=== PATIENT | male | born 1955 | race Caucasian/White ===

== ENCOUNTER 2016-05-08 17:54 | Emergency (ER) | payer MEDICARE ==
[~2016-05-08 17:54] MED LIST: ADVAIR DIS1 PUFF/DO1 IH; ALLEGRA DPS180 MG PO; COUMADIN1 MG PO; DELTASONE DPS20 MG PO; ENULOSE10 GM/15 M PO; FOLVITE-DPS1 MG PO; INDERAL-DPS10 MG PO; KEFLEX-DPS500 MG PO; KLOR-CON M2020 ME1 PO; LACTULOSE20 GM/30 M PO; LEVAQUIN DPS500 MG PO; LOVENOX DP40 MG/0.4 SQ; MAG-OX400 MG PO; OXY IR DPS5 MG PO; POTASSIUM CHLO20 ME1 PO; PROTONIX40 MG PO; SURFAK DPS240 MG PO; THERA1 EACH PO; VIBRAMYCIN-DPS100 M2 PO; VITAMIN B1100 MG PO
--- NOTE | 2016-05-19 20:26 | ER ---
ADMIT: 05/08/2016 RM/LOC: ER [facility] MR#: [id number] [address] [address] MIRLANDE ALBRIGHT [address] [place] [address] Emergency Room Report SEX: M AGE: 60 : 1955 DATE: 05/08/2016 ADDENDUM: CHIEF COMPLAINT: Right leg pain. HISTORY OF PRESENT ILLNESS: This is a 60-year-old male, who was stepping off to a pond that was just about down a foot down. He said it hurt when he stepped down. I did an x-ray of his right lower leg, it is negative for any fracture read by Dr. Santana. CLINICAL IMPRESSION: Contusion in the right lower leg. I did give him 400 mg ibuprofen in the ER and discharged home. CARLOS Soares / Donnell Santana MD / alexandro JOB #: [id number] CC: Bassam Laguna MD, Attending Physician Bassam Posey MD, Family Physician
[2016-08-25] MEDS ORDERED: PERIDEX DPS473 ML PO (16:06)
[2016-08-25] MEDS ORDERED: LASIX DPS20 MG PO (16:06)
[2016-08-25] MEDS ORDERED: KLOR-CON M2020 ME1 PO (16:06)
[2016-08-25] MEDS ORDERED: CELEXA DPS20 MG PO (16:06)
[2016-08-25] MEDS ORDERED: CIPRO750 MG PO (16:07)
[2016-08-25] MEDS ORDERED: ZANAFLEX2 MG PO (16:07)
[2016-08-25] MEDS ORDERED: CARAFATE DPS1 GM PO (16:08)
[2016-10-29] MEDS ORDERED: CARAFATE DPS1 GM PO (14:59)
[2016-10-29] MEDS ORDERED: CELEXA DPS20 MG PO (15:00)
[2016-10-29] MEDS ORDERED: LACTULOSE20 GM/30 M PO (15:00)
[2016-10-29] MEDS ORDERED: KLOR-CON M2020 ME1 PO (15:00)
[2016-10-29] MEDS ORDERED: VITAMIN B1100 MG PO (15:00)
[2016-10-29] MEDS ORDERED: FOLVITE-DPS1 MG PO (15:00)
[2016-10-29] MEDS ORDERED: SPORTS CREAM85 GM TP (15:01)
[2016-10-29] MEDS ORDERED: NORMAL SALINE FL5 ML IV (15:01)
[2016-10-29] MEDS ORDERED: XIFAXAN550 MG PO (15:01)
[2016-10-29] MEDS ORDERED: PROTONIX IV40 MG IV (15:02)
[2016-10-29] MEDS ORDERED: VANCOCIN-DPS1 GM IV (15:03)
[2016-10-29] MEDS ORDERED: ZOSYN 3.3753.375 GM IV (15:03)
[2016-10-29] MEDS ORDERED: MILK OF MAGNESI10 ML PO (15:04)
[2016-10-29] MEDS ORDERED: MIRALAX PACKET17 GM PO (15:04)
[2016-10-29] MEDS ORDERED: DULCOLAX-DPS10 MG PR (15:04)
[2016-10-29] MEDS ORDERED: DESYREL-DPS50 MG PO (15:04)
[2016-10-29] MEDS ORDERED: ZOFRAN4 MG PO (15:04)
[2016-10-29] MEDS ORDERED: NITROSTAT0.4 MG SL (15:05)
[2016-10-29] MEDS ORDERED: MORPHINE2 MG/ML IV (15:05)
[2016-10-29] MEDS ORDERED: NORMAL SALINE1000 ML IV (15:06)
== END 2016-05-08 19:30 | disposition home or self-care (01) ==
LOC: ER 17:54
DX: S80.11XA Contusion of right lower leg, initial encounter (principal); W22.8XXA Striking against or struck by other objects, initial encounter

== ENCOUNTER 2016-05-19 17:29 | Emergency (ER) | payer MEDICARE ==
--- NOTE | ~2016-05-19 | CO ---
ADMIT: 05/19/2016 RM/LOC: [facility] MR#: [id number] [address] [address] MIRLANDE ALBRIGHT [address] [place] [address] Consultation SEX: M AGE: 60 : 1955 DATE OF CONSULTATION: 05/19/2016 ATTENDING PHYSICIAN: Grover Sanchez CONSULTING PHYSICIAN: Bassam Posey MD ADDENDUM: This is an addendum to consultation. The patient was initially planned for transfer to [facility] in [place], was questioning whether not the patient should indeed be transferred #1, then presented concerns of why the patient was not being transferred to [place] as he had been banded in the past. I spoke with the patient as he has also been banded in [place] and he does confirm that it was actually at [facility] and not at [facility]. I spoke to Wade Mar, the EMTALA bsa/aml compliance officer on recommendations of how to proceed at this point. He does educated me that technically based on EMTALA Guidelines that the patient must transfer to the closest facility with the available services which would indeed be [place]. Therefore at that time, when asked on further recommendations that he would recommend that we do indeed do attempt transfer to [place] first and therefore, I do proceed with that. I do speak with Dr. Everett, I do update him of the patient's history as well as history of esophageal varices. History of TIPS. Dr. Everett does then tell me at that time, that they do have limited abilities to band esophageal varices, however, not gastric varices. I do discuss the history of the patient with him as well as my discussions with EMTALA compliance as well as with recommendations for attempted transfer to [place] as it is the closest available facility with available services. Therefore, Dr. Everett does accept this patient with making sure that I understand with this stated limitations; however, the patient cannot be treated there, they will transfer him on to a different facility as they do not have a radiologist; however, he does accept the patient. At that time, he does request that I speak to the hospitalist services. I do speak to hospital service. I do discuss the patient's history as well as history of right upper extremity DVT approximately 6 months ago as well as no gross hematochezia, no melena, no hemoptysis but with substantial diarrhea and epigastric pain as well as limitations here at [facility] as our general surgeons who do all of our endoscopy and if in the event this patient does have esophageal variceal bleeding which he has had in the past, we cannot intervene as we do not have the capabilities. He requests that we do give him some IV Protonix, packed red blood cells as well as push all of the imaging to packs services. I do update him on the interventions at this point that we have given 80 mg of IV Protonix now. We have also given ordered 1 unit of packed red blood cells to be given as well as he did get 1 mg of subcu vitamin K in the ER. I will go ahead and start him on his drip at 8 mg/hour of the Protonix as well as at his request, I give him 1 g of IV ceftriaxone which we will also order this as well. The patient is accepted to [place]. The nurse in the ER will notify [facility] that we are indeed transferring to [facility] as it is the closest facility with the available services and based on EMTALA guidelines, we will proceed with ADMIT: 05/19/2016 RM/LOC: ER [facility] MR#: [id number] [address] [place] [id number] JOSE RAMON, MIRLANDE Veronique [address] [place] [address] Consultation SEX: M AGE: 60 : 1955 [address] I do speak with Wade Mar as well and for further recommendations if there is any further images or any further steps need to be taken to maintain at all compliance and just request that clearly document exactly why the patient was diverted from [place] to [place]. The patient does have what appears to be acute blood loss anemia, approximately 5.5 g. He does have some epigastric pain as well as some diarrhea. I did have CTA with negative for PE. Concern is that he does have a gastrointestinal bleeding, source is not identified at this time, gastritis versus esophageal varices. With his esophageal varices, for the patient's safety and the patient does agree with transfer as well, we will transfer him to a facility that has Gastroenterology services that can meet his needs for gastrointestinal or for esophageal variceal banding if that is indeed the acute medial etiology of his symptoms as well as to the point where they could actually complete his diagnostic procedures and intervene upon them if warranted. Bassam Posey MD/ alexandro JOB #: [id number] CC: Grover Sanchez, Attending Physician Bassam Posey, Family Physician
--- NOTE | 2016-05-20 17:56 | CO ---
ADMIT: 05/19/2016 RM/LOC: [facility] MR#: [id number] [address] [address] CASEY ALBRIGHT [address] [place] [address] Consultation SEX: M AGE: 60 : 1955 DATE OF CONSULTATION: 05/19/2016 ATTENDING PHYSICIAN: Grover Sanchez MD CONSULTING PHYSICIAN: Bassam Posey MD REASON FOR CONSULTATION: Evaluation for hypotension,tachycardia, syncope, and anemia. HISTORY OF PRESENT ILLNESS: Casey Albright is a very nice 60-year-old man, who is previously known to my service. Casey does have a rather complicated history. He has cirrhosis secondary to chronic alcohol use, most recently has some difficulty with incarceration secondary to some conflicts with some roommates. Last was admitted to [facility] in August of 2015. He did have severe sepsis at that time and he did have extensive clot burden is right upper extremity precipitated by a PICC line. He actually resolved nicely from his sepsis and was discharged to home. Ray was subsequently largely lost to followup after this as he did spend some time in care home. He has not been on continuous anticoagulation. He reports he did not take it at all while he was in the care home and when discharged, he was on 3 mg of Coumadin 1 day a week. The patient ultimately followed up in my clinic secondary to need for cataract surgery. He was actually taken off his Coumadin at that time. He did have an uneventful cataract surgery and was doing well and was reinstituted on his Coumadin. He has not had any contiguous anticoagulation for these last 6-9 months. He was actually doing quite well until tonight when reportedly he had syncopal episode and sudden onset of chest pain. He was evaluated by the ambulance services and was noted to have a systolic pressure of 102. He had severe chest pain. They gave him nitroglycerin. Upon arrival to the ER, his blood pressures were 67/palp with severe hypotension, severe tachycardia. He did receive goal-directed therapy under the care of Dr. Sanchez with IV fluids. He did receive evaluation as well for potential pulmonary embolism. He did undergo a CT angiogram of his chest, which on report to the ER was negative for any acute PE's and was actually diagnosed with severe anemia with a hemoglobin of 7.2. He does not report any samanta hematemesis. No hematochezia. No melena. However, he has had substantial epigastric pain. The patient does say that he is no longer drinking alcohol. However, he has been relapsing periodically. Unclear if he has actually been drinking at this time because we do not have any blood alcohol level. Anyway, regardless, he states he has been in his normal state of health and just suddenly he had a sudden episode of syncope after a large loose BM and called the ambulance and that resulted in his evaluation in the ER. He does feel much better after a fluid resuscitation and he does feel much less short of breath with 2 L per nasal cannula. He does confirm that he has known esophageal varices. He had been banded twice, I believe, at [facility] in [place] as well as one time in [facility] in [place]. Most recently, he was banded in [place]. Otherwise, he states that he has not been taking his Protonix, pretty much any of his pills, but did get back on everything approximately 1 week ago when he stopped in to my office to speak to the nurse. ADMIT: 05/19/2016 RM/LOC: ER [facility] MR#: [id number] [address] [place] [phone] CASEY ALBRIGHT [address] [place] [id number] Consultation SEX: M AGE: 60 : 1955 Otherwise, he does feel relatively okay at this point. PAST MEDICAL HISTORY: 1. Chronic alcohol abuse. 2. Cirrhosis secondary to chronic alcoholism. 3. Known esophageal varices. 4. History of TIPS. 5. History of variceal banding x2. 6. Ascites in the past. However, this has largely improved with his TIPS. 7. Hypertension. 8. Tobacco abuse. 9. Major depression. 10.Malnutrition. 11.Medical nonadherence. 12.History of right extremity DVT. 13.Sporadic anticoagulation. MEDICATIONS: 1. Protonix 40 mg daily. 2. Propranolol 10 mg three times daily. 3. Potassium chloride 20 mEq daily. 4. Advair 250/50 two puffs twice daily. 5. Coumadin. However, he has been very nonadherent to these and states that he just got back on everything approximately a week ago. ALLERGIES: NO KNOWN MEDICAL ALLERGIES. FAMILY HISTORY: He does not really remember a lot about his family history. He does not remember anyone have any bleeding disorders or anything of that nature. However, there is a family history of some substance abuse. SOCIAL HISTORY: He smokes tobacco. He does drink alcohol. He states that he has not drank for several months. Unclear if this is accurate or not because he does forget drinks and forgets a lot. He. does have some cognitive changes secondary to his chronic alcoholism as well. He does not do drugs. He lives with a lady friend and she is very supportive. He does have a sister, who is his POA, is very supportive as well. REVIEW OF SYSTEMS: Complete review of systems reviewed as per HPI. PHYSICAL EXAMINATION: VITAL SIGNS: Blood pressure has stabilized, 120/50, pulse is 120, respiratory rate is 20. He is 2 L on nasal cannula. GENERAL: He is alert and oriented x3. He actually feels quite well right now. HEENT: Normocephalic, atraumatic. He has some abrasions on some of his ADMIT: 05/19/2016 RM/LOC: [facility] MR#: [id number] [address] [address] CASEY ALBRIGHT [address] [place] [address] Consultation SEX: M AGE: 60 : 1955 elbows and skin. NECK: Supple. HEART: Tachycardic. LUNGS: Distant with prolonged expiratory phase. ABDOMEN: Soft. It is nondistended. It is tender to palpation in the epigastric region. EXTREMITIES: No clubbing. No cyanosis. ABDOMEN: Of note, on his abdomen, he does have a bit of a ventral hernia as well. LABORATORY DATA: Hemoglobin was 7.2, one month ago at my clinic was 12.7. White blood cells are 1.5, platelets 141, sodium 140, potassium is 2.6, chloride 107, bicarb is 15, glucose is 134, BUN is 12, creatinine is 1.2, glucose is 7.3, magnesium is 1.8, troponin 0.015, INR is 1.83. Hemoccult is actually negative. EKG with tachycardia. ASSESSMENT AND PLAN: 1. Anemia. The patient has a substantial reduction in his hemoglobin in approximately 1 months' time. Dropping approximately 5.5 grams. He does not report any samanta bleeding in his stools. He has no back pain, but he does have some pretty severe epigastric pain. 2. Shock. He clearly I think with systolic pressures of 100 with EMS and 60s/palp reportedly in the ER. The patient clearly does have a degree of shock which has responded very nicely to fluids. 3. Hypokalemia. 4. Chest pain. 5. Sinus tachycardia. 6. History of esophageal varices. 7. Chronic liver disease. 8. History of right upper extremity DVT which was provoked. 9. Sporadic anticoagulation. He has not been on any actually contiguous anticoagulation at all with this to complete even 3 months total. To summarize, Casey Albright is a very nice 60-year-old man, who unfortunately does have a long struggle with chronic alcoholism, recently spent some time in care home. He has been really working hard to get things going in the right direction for himself. He does have a place where he lives. He has a very supportive live-in lady roommate, very supportive family. He recently had his cataracts done and was doing quite well. He re-established in clinic and trying to make sure he follows up to maintain on his medications. He was in his normal state of health; however, did have acute onset of chest pain and a syncopal episode with BM. He was noted to have a systolic pressure of 102 by EMS and was given some sublingual nitroglycerin, this upon arrival with his pressures were like 67 reportedly over palp. Had heart rate in the 130s, and ultimately did have imaging with no PE, no pneumonia, and noted to have just very substantial reduction of his hemoglobin approximately 5.5 g. I did speak ADMIT: 05/19/2016 RM/LOC: ER [facility] MR#: [id number] [facility] [place] [id number] CASEY ALBRIGHT [address] [place] [address] Consultation SEX: M AGE: 60 : 1955 with our General surgery Services, who would be our consultative services for gastrointestinal bleeding as I am concerned with his previous history of esophageal varices and esophageal bleeding that he may indeed have esophageal bleeding vs gastritis. The General Surgery Services do not have the capability to band esophageal varices if this is indeed the source of his bleeding they recommend transfer. With our inability to provide appropriate potentially needed services at this time, I do recommend that it would be prudent to transfer this patient to a higher level institution that actually has Gastroenterology Services who can meet a potential need if he does indeed have an esophageal varices bleeding. This very well could be gastritis. However, with his history, I think for patient safety, I think it is prudent to transfer him to a higher level institution where he will have the appropriate potential interventions if he does indicate need them. I do speak to the ER doctor about these recommendations, go ahead and give him 80 mg of IV Protonix, as well as I will go ahead and order type and cross, 1 unit of packed red blood cells, and I am going to order 40 mEq of IV potassium. The ER physician does speak to [facility] in [place]. They do have reportedly Gastroenterology Services. They do give checkout to the hospitalist services. There is some concern about whether or not he is acutely bleeding or not. I do speak personally to the hospitalist services. I do review his history of esophageal varices, noted to be banded twice x2. It is once in [place] and most recently in [place]. The hospitalist service does not note that he had been banded at their institution so there likely does appear to be [facility] to which he was transferred in the past. Regardless, I have a samanta discussion with Dr. Weaver that Mr. Albright does have a known history of esophageal varices with bleeding and banding of these esophageal varices. He does have a 5.5 g hemoglobin loss just in 1 month. He does not have any positive Hemoccult at this time. He does not report any bleeding; however, does have severe epigastric pain. This very well may be gastritis. However, if this is not the case and that this is actually bleeding esophageal varices, we have no capability to intervene upon this with our General Surgery Services who do our endoscopies, who cannot proceed with appropriate endoscopy on this jose juan ADMIT: 05/19/2016 RM/LOC: ER [facility] MR#: [id number] [address] [place] [id number] CASEY ALBRIGHT [address] [place] [address] Consultation SEX: M AGE: 60 : 1955 secondary to esophageal varices as they lack the ability to do the intervention if needed. I do discuss with him heart rates 130s upon arrival as well as hypotension upon arrival as well as I feel that this is prudent to transfer this patient for patient's safety in the event that he does require the services if this is indeed bleeding esophageal varices. At that time, Mr. Micky Weaver does agree to accept the patient in transfer and he had no further questions. I did speak to the ER physician of my recommendations for Protonix, type and cross his packed red blood cells as well as give some IV potassium. I discussed this plan with the patient, who expressed understanding, was in agreement, and had no further questions. Bassam Posey MD/ alexandro JOB #: [id number] CC: Grover Sanchez MD, Attending Physician Bassam Posey MD, Family Physician
--- NOTE | 2016-05-20 18:07 | CO ---
ADMIT: 05/19/2016 RM/LOC: ER [facility] MR#: [id number] [address] [address] MIRLANDE ALBRIGHT [address] [place] [address] Consultation SEX: M AGE: 60 : 1955 DATE OF CONSULTATION: 05/19/2016 ATTENDING PHYSICIAN: Grover Sanchez CONSULTING PHYSICIAN: Bassam Posey MD ADDENDUM: I did receive another call from Dr. Romero in [place] with Hospitalist Services, request that the patient be initiated on octreotide drip 50 mcg x1, followed by 50 mcg an hour. We will request these to be started in the ER prior to his transfer to [place]. Bassam Posey MD/ alexandro JOB #: [id number] CC: Grover Sanchez, Attending Physician Bassam Posey, Family Physician
--- NOTE | 2016-05-20 19:07 | ER ---
ADMIT: 05/19/2016 RM/LOC: ER [facility] MR#: [id number] [address] [address] MIRLANDE ALBRIGHT [address] [place] [address] Emergency Room Report SEX: M AGE: 60 : 1955 DATE: 05/19/2016 ADDENDUM: Please refer to Dr. Sanchez's dictation as the main dictation. The patient is a 60-year-old male with a past medical history of alcoholic cirrhosis; esophageal viruses, status post band ligation; and TIPS; who came to the ER with chief complaint of syncope. The patient received nitroglycerin sublingual in the ambulance and by the time he got here, his systolic blood pressure was 60s, allegedly, previous systolic per nursing was 110. In the ER, D-dimer was elevated, questionable if it is because of the PE versus other causes like cirrhosis. CT angio of the chest was done, which was negative for PE. The patient's hemoglobin was dropped from 11-7 since last month, but the patient denied any obvious bleeding or any dark stools. The patient had mild epigastric pain. Hemoccult was negative and BUN was not elevated. With the possibility of GI bleed versus other causes, after discussion of the case with Medicine, Dr. Posey, he advised that the patient should be transferred as if the esophageal varices and bleeding occurs here, we do not have the GI and proper specialist to followed up and it could be life threatening. I agreed with the plan. The patient received IV fluid and was started transfusion 1 units of PRBC in the ER. The patient received vitamin K too. Blood pressure systolic raised to 120s. The patient was still tachycardic and 120 per minute. We contacted [facility], after talking to Dr. Micky Weaver, hospitalist, he admitted the patient for further followups and treatments. Benjamin Elias MD/ alexandro JOB #: [id number] CC: Grover Sanchez MD, Attending Physician UNKNOWN, Family Physician
[2016-08-25] MEDS ORDERED: LASIX DPS20 MG PO (16:06)
[2016-08-25] MEDS ORDERED: KLOR-CON M2020 ME1 PO (16:06)
[2016-08-25] MEDS ORDERED: CELEXA DPS20 MG PO (16:06)
[2016-08-25] MEDS ORDERED: PERIDEX DPS473 ML PO (16:06)
[2016-08-25] MEDS ORDERED: CIPRO750 MG PO (16:07)
[2016-08-25] MEDS ORDERED: ZANAFLEX2 MG PO (16:07)
[2016-08-25] MEDS ORDERED: CARAFATE DPS1 GM PO (16:08)
[2016-10-29] MEDS ORDERED: CARAFATE DPS1 GM PO (14:59)
[2016-10-29] MEDS ORDERED: VITAMIN B1100 MG PO (15:00)
[2016-10-29] MEDS ORDERED: FOLVITE-DPS1 MG PO (15:00)
[2016-10-29] MEDS ORDERED: CELEXA DPS20 MG PO (15:00)
[2016-10-29] MEDS ORDERED: LACTULOSE20 GM/30 M PO (15:00)
[2016-10-29] MEDS ORDERED: KLOR-CON M2020 ME1 PO (15:00)
[2016-10-29] MEDS ORDERED: XIFAXAN550 MG PO (15:01)
[2016-10-29] MEDS ORDERED: SPORTS CREAM85 GM TP (15:01)
[2016-10-29] MEDS ORDERED: NORMAL SALINE FL5 ML IV (15:01)
[2016-10-29] MEDS ORDERED: PROTONIX IV40 MG IV (15:02)
[2016-10-29] MEDS ORDERED: ZOSYN 3.3753.375 GM IV (15:03)
[2016-10-29] MEDS ORDERED: VANCOCIN-DPS1 GM IV (15:03)
[2016-10-29] MEDS ORDERED: DULCOLAX-DPS10 MG PR (15:04)
[2016-10-29] MEDS ORDERED: ZOFRAN4 MG PO (15:04)
[2016-10-29] MEDS ORDERED: DESYREL-DPS50 MG PO (15:04)
[2016-10-29] MEDS ORDERED: MILK OF MAGNESI10 ML PO (15:04)
[2016-10-29] MEDS ORDERED: MIRALAX PACKET17 GM PO (15:04)
[2016-10-29] MEDS ORDERED: NITROSTAT0.4 MG SL (15:05)
[2016-10-29] MEDS ORDERED: MORPHINE2 MG/ML IV (15:05)
[2016-10-29] MEDS ORDERED: NORMAL SALINE1000 ML IV (15:06)
== END 2016-05-19 22:35 | disposition short-term general hospital (02) ==
LOC: ER 17:29
DX: E87.6 Hypokalemia (principal); R00.0 Tachycardia, unspecified; D64.9 Anemia, unspecified; I10 Essential (primary) hypertension; Z79.01 Long term (current) use of anticoagulants; Z79.899 Other long term (current) drug therapy

== ENCOUNTER 2016-06-25 22:57 | Emergency (ER) | payer MEDICARE ==
--- NOTE | 2016-07-04 19:05 | ER ---
ADMIT: 06/25/2016 RM/LOC: ER [facility] MR#: [id number] [address] [address] MIRLANDE ALBRIGHT [address] [place] [address] Emergency Room Report SEX: M AGE: 60 : 1955 DATE: 06/25/2016 The patient was signed out to me, please refer to the main dictation for further information. The patient is a 60-year-old male with a past medical history of chronic alcohol disorder, abuse, and alcoholic cirrhotic liver disease; esophageal varices, came to the ER with chief complaint of sharp, intermittent abdominal pain which is sometimes crampy and sometimes is in the right lower quadrant and the other times is in the epigastric area. The patient states while he was in the ER, he had few cramps which resolved spontaneously, each of them lasted few seconds to 1 or 2 minutes. The patient states that severity of pain was moderate and for a few seconds, it becomes severe. The patient states for the last year, he had similar episodes for the whole year. The patient has been followed up by his physician closely. The patient denies any hematochezia, melena, or hematemesis. PHYSICAL EXAMINATION: On physical examination when I got into the room, the patient was sleeping in no pain or distress, vital signs were stable, the patient was not tachycardic. When I got to the patient, as soon as I woke up the patient, he stated he has some pain in the epigastric area, but the abdomen had no tenderness or rebound or guarding. The patient was given some Protonix. The patient was given IV fluids. The lab works were noncontributory. In the ER, the patient had 2 episodes of right nasal bleed, which was cauterized with silver nitrate successfully. The patient was observed and did not develop any new symptoms, abdominal pain was controlled, and the patient was stable. The rest of the physical examination and lab works were noncontributory. The patient was discharged, cleared to shelter, to be followed up by the shelter physician and primary care doctor as needed. Benjamin Elias MD/ alexandro JOB #: [id number] CC: Benjamin Elias MD, Attending Physician [facility], Family Physician
[2016-08-25] MEDS ORDERED: PERIDEX DPS473 ML PO (16:06)
[2016-08-25] MEDS ORDERED: LASIX DPS20 MG PO (16:06)
[2016-08-25] MEDS ORDERED: CELEXA DPS20 MG PO (16:06)
[2016-08-25] MEDS ORDERED: KLOR-CON M2020 ME1 PO (16:06)
[2016-08-25] MEDS ORDERED: CIPRO750 MG PO (16:07)
[2016-08-25] MEDS ORDERED: ZANAFLEX2 MG PO (16:07)
[2016-08-25] MEDS ORDERED: CARAFATE DPS1 GM PO (16:08)
[2016-10-29] MEDS ORDERED: CARAFATE DPS1 GM PO (14:59)
[2016-10-29] MEDS ORDERED: LACTULOSE20 GM/30 M PO (15:00)
[2016-10-29] MEDS ORDERED: VITAMIN B1100 MG PO (15:00)
[2016-10-29] MEDS ORDERED: KLOR-CON M2020 ME1 PO (15:00)
[2016-10-29] MEDS ORDERED: CELEXA DPS20 MG PO (15:00)
[2016-10-29] MEDS ORDERED: FOLVITE-DPS1 MG PO (15:00)
[2016-10-29] MEDS ORDERED: SPORTS CREAM85 GM TP (15:01)
[2016-10-29] MEDS ORDERED: XIFAXAN550 MG PO (15:01)
[2016-10-29] MEDS ORDERED: NORMAL SALINE FL5 ML IV (15:01)
[2016-10-29] MEDS ORDERED: PROTONIX IV40 MG IV (15:02)
[2016-10-29] MEDS ORDERED: VANCOCIN-DPS1 GM IV (15:03)
[2016-10-29] MEDS ORDERED: ZOSYN 3.3753.375 GM IV (15:03)
[2016-10-29] MEDS ORDERED: MILK OF MAGNESI10 ML PO (15:04)
[2016-10-29] MEDS ORDERED: DULCOLAX-DPS10 MG PR (15:04)
[2016-10-29] MEDS ORDERED: ZOFRAN4 MG PO (15:04)
[2016-10-29] MEDS ORDERED: MIRALAX PACKET17 GM PO (15:04)
[2016-10-29] MEDS ORDERED: DESYREL-DPS50 MG PO (15:04)
[2016-10-29] MEDS ORDERED: MORPHINE2 MG/ML IV (15:05)
[2016-10-29] MEDS ORDERED: NITROSTAT0.4 MG SL (15:05)
[2016-10-29] MEDS ORDERED: NORMAL SALINE1000 ML IV (15:06)
== END 2016-06-26 06:25 ==
LOC: ER 22:57
PROC: 0W3Q7ZZ Control Bleeding in Respiratory Tract, Via Natural or Artificial Opening (ICD-10-PCS; principal; 2016-06-26)
DX: R10.13 Epigastric pain (principal); R04.0 Epistaxis

== ENCOUNTER 2016-10-06 21:21 | Inpatient (IN) | payer MEDICARE ==
[~2016-10-06] VITALS: Ht 182.9 cm; Wt 67.4 kg
[~2016-10-06 21:21] MED LIST changes: +CARAFATE DPS1 GM PO; +CELEXA DPS20 MG PO; +CIPRO750 MG PO; +LASIX DPS20 MG PO; +PERIDEX DPS473 ML PO; +ZANAFLEX2 MG PO
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
--- NOTE | 2016-10-16 08:11 | CO ---
ADMIT: 10/06/2016 RM/LOC: 402 [facility] MR#: [id number] [address] [address] MIRLANDE ALBRIGHT [address] [place] [address] Consultation SEX: M AGE: 60 : 1955 DATE OF CONSULTATION: 10/09/2016 ATTENDING PHYSICIAN: Bassam Posey CONSULTING PHYSICIAN: Maryanne Chatterjee MD REASON FOR CONSULTATION: Acute kidney injury. HISTORY OF PRESENT ILLNESS: The patient is a 60-year-old male, who has a history of alcoholic cirrhosis that is complicated by esophageal varices, hyperbilirubinemia, ascites as well as portal hypertension. He was admitted to the hospital 2 days ago with nausea, vomiting, and worsening jaundice. He has a bilirubin that is in the 20s. His creatinine a couple days ago was 1.5 that had improved to 1.2, but is up to 1.4. Notably, he had a large volume paracentesis yesterday when 4.2 L of fluid was removed. His appetite is poor. He has had nausea, vomiting, and diarrhea as well. He denies any urinary complaints. His energy has not been great. He denies any dyspnea at rest, but has dyspnea on exertion. He has no other complaints. He claims that he has not been drinking lately. REVIEW OF SYSTEMS: A complete review of systems is negative in detail except as mentioned in history of present illness above. PAST MEDICAL HISTORY: 1. Hypertension. 2. Alcohol abuse. 3. Alcoholic cirrhosis complicated by esophageal varices. 4. Hyperbilirubinemia. 5. Ascites. 6. Portal hypertension. 7. Tobacco abuse. 8. Umbilical hernia. 9. Esophageal banding. MEDICATIONS: Reviewed in the chart. SOCIAL HISTORY: Denies any ongoing alcohol use. He still smokes 3 to 4 cigarettes a day. 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 He lives at home with his friend. FAMILY HISTORY: Denies any family history of chronic kidney disease or renal replacement therapy. PHYSICAL EXAMINATION: VITAL SIGNS: Temperature 97.1 Fahrenheit, pulse 99, blood pressure 128/67, saturating 97% on room air. GENERAL: He is in bed and is icteric. HEENT: Head is nontraumatic and normocephalic. Extraocular movements are intact. He has scleral icterus. CHEST: Clear to auscultation. ADMIT: 10/06/2016 RM/LOC: 402 [facility] MR#: [id number] [id number] [address] MIRLANDE ALBRIGHT [address] [place] [address] Consultation SEX: M AGE: 60 : 1955 CVS: Regular rhythm. S1 and S2 heard. He has systolic cardiac murmur. ABDOMEN: Soft. He has ascites. EXTREMITIES: No edema. SKIN: Multiple excoriation from scratching himself. NEUROLOGIC: Alert, awake, and oriented x3. He is able to move all his extremities. LABORATORY DATA: Reviewed. BMP with sodium 135, potassium 3.4, CO2 of 19, creatinine 1.4, total bilirubin was 22.4, phosphorus 1.6, AST 104, ALT 194. Hemoglobin 8.4. INR was 1.7. His urine drug screen was negative. ASSESSMENT AND PLAN: Acute kidney injury-the differential diagnosis from this includes prerenal acute kidney injury after his large volume paracentesis, acute tubular necrosis secondary to pigment nephropathy, and his hyperbilirubinemia, intraabdominal hypertension from his ascites, as well as hepatorenal syndrome. I will check urine studies to evaluate further. I will check a urinalysis with microscopy, spot urine sodium, as well as a spot urine creatinine. It is okay to hold his Aldactone for the next 24 to 48 hours especially in light of his a recent paracentesis. Monitor the kidney function closely, avoid nephrotoxins such as NSAIDs, IV contrast, or Fleets enemas. Thank you this consultation. Maryanne Chatterjee MD/ alexandro JOB #: [id number] CC: Bassam Posey, Attending Physician Bassam Posey, Family Physician
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
[2016-10-29] MEDS ORDERED: CARAFATE DPS1 GM PO (14:59)
[2016-10-29] MEDS ORDERED: CELEXA DPS20 MG PO (15:00)
[2016-10-29] MEDS ORDERED: FOLVITE-DPS1 MG PO (15:00)
[2016-10-29] MEDS ORDERED: LACTULOSE20 GM/30 M PO (15:00)
[2016-10-29] MEDS ORDERED: VITAMIN B1100 MG PO (15:00)
[2016-10-29] MEDS ORDERED: KLOR-CON M2020 ME1 PO (15:00)
[2016-10-29] MEDS ORDERED: XIFAXAN550 MG PO (15:01)
[2016-10-29] MEDS ORDERED: NORMAL SALINE FL5 ML IV (15:01)
[2016-10-29] MEDS ORDERED: SPORTS CREAM85 GM TP (15:01)
[2016-10-29] MEDS ORDERED: PROTONIX IV40 MG IV (15:02)
[2016-10-29] MEDS ORDERED: VANCOCIN-DPS1 GM IV (15:03)
[2016-10-29] MEDS ORDERED: ZOSYN 3.3753.375 GM IV (15:03)
[2016-10-29] MEDS ORDERED: DESYREL-DPS50 MG PO (15:04)
[2016-10-29] MEDS ORDERED: MILK OF MAGNESI10 ML PO (15:04)
[2016-10-29] MEDS ORDERED: MIRALAX PACKET17 GM PO (15:04)
[2016-10-29] MEDS ORDERED: ZOFRAN4 MG PO (15:04)
[2016-10-29] MEDS ORDERED: DULCOLAX-DPS10 MG PR (15:04)
[2016-10-29] MEDS ORDERED: NITROSTAT0.4 MG SL (15:05)
[2016-10-29] MEDS ORDERED: MORPHINE2 MG/ML IV (15:05)
[2016-10-29] MEDS ORDERED: NORMAL SALINE1000 ML IV (15:06)
== END 2016-10-17 13:11 | disposition short-term general hospital (02) | DRG 432 ==
LOC: ER 21:21 → 3ICU 23:50 → 4PCU 23:50
PROVIDERS: ADMIT Internal Medicine
PROC: 0W9G3ZZ Drainage of Peritoneal Cavity, Percutaneous Approach (ICD-10-PCS; principal; 2016-10-07)
PROC: 0W9G3ZZ Drainage of Peritoneal Cavity, Percutaneous Approach (ICD-10-PCS; 2016-10-15)
PROC: 30233N1 Transfusion of Nonautologous Red Blood Cells into Peripheral Vein, Percutaneous Approach (ICD-10-PCS; 2016-10-16)
DX: K70.31 Alcoholic cirrhosis of liver with ascites (principal); K65.2 Spontaneous bacterial peritonitis; K70.11 Alcoholic hepatitis with ascites; E43 Unspecified severe protein-calorie malnutrition; N17.9 Acute kidney failure, unspecified; I85.10 Secondary esophageal varices without bleeding; K76.6 Portal hypertension; D62 Acute posthemorrhagic anemia; K92.2 Gastrointestinal hemorrhage, unspecified; D69.6 Thrombocytopenia, unspecified; E83.39 Other disorders of phosphorus metabolism; E87.6 Hypokalemia; R10.9 Unspecified abdominal pain; R00.0 Tachycardia, unspecified; E80.6 Other disorders of bilirubin metabolism; F17.210 Nicotine dependence, cigarettes, uncomplicated